=== PATIENT | male | born 1960 | race Caucasian/White ===

== ENCOUNTER 2018-06-09 08:08 | Outpatient (CLI) | payer OTHER | END 2018-06-09 15:05 | disposition home or self-care (01) | LOC: MRI 08:08 | DX: M23.8X1 Other internal derangements of right knee (principal); M54.2 Cervicalgia; M50.322 Other cervical disc degeneration at C5-C6 level; G57.52 Tarsal tunnel syndrome, left lower limb | CPT/HCPCS: 72141; 73721 ==